=== PATIENT | female | born 1960 | race Caucasian/White ===

== ENCOUNTER 2016-04-10 13:19 | Outpatient (CLI) | payer MEDICARE ==
--- NOTE | 2016-04-11 10:57 | PAIN CLINIC PROGRESS NOTES ---
REFERRING PHYSICIANS: Dr. Elsa Ochoa Dear Elsa: REASON FOR VISIT: I had the opportunity of following up with Svetlana Benavidez. This is a 55-year-old white female who initially presented with back pain and she had an excellent response to a facet medial branch block followed by a lumbar radiofrequency neurolysis in September, but her symptoms began to reoccur. She had minimal to no response with a lumbar epidural injection for hip and leg pain. Last January, I repeated facet blocks higher at L1, L2, and L3 and then again at the sacroiliac joint all on the left side and she once again had near complete relief of her back and hip pain. Her MRI reveals a L4-L5 disk protrusion but nothing that results in severe or significant spinal or neuroforaminal stenosis. I re-examined Ms. Benavidez again today and she has no dermatomal numbness or weakness. She has a negative straight leg raise and a markedly positive assisted extension and extension rotation finding. She has a positive sacroiliac joint finding. Her nerve conduction velocity study by Dr. Larsen did not show any abnormalities or evidence of radiculopathy. 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 If that results in relief, I would recommend repeating a wide radiofrequency neurolysis. I have also talked to her about bone marrow aspirate concentrate injection for joint pain if that turns out to be the working diagnosis. She is very receptive, and I will see her back in the very near future. Thank you for allowing me to take part in the care of this nice lady. I am optimistic that we can get her some long-term relief. cc: Dr. Elsa PUCKETT
== END 2016-04-10 13:20 ==
LOC: OUT 13:19
PROVIDERS: ATTEND Anesthesiology Pain Medicine
DX: M54.9 Dorsalgia, unspecified (principal)
CPT/HCPCS: 99214; G0463

== ENCOUNTER 2017-04-26 09:47 | Outpatient (CLI) | payer MEDICARE ==
[2017-04-26 11:05] LABS: BASOPHILS % 0.7 (0.0-1.5); EOSINOPHILS % 1.9 % (0.0-6.8); MEAN CORPUSCULAR HEMOGLOBIN 28.5 pg (28.0-34.0); MEAN CORPUSCULAR VOLUME 85.8 fl (80.0-100.0); MONOCYTES % 4.4 % (0.0-11.0); NEUTROPHILS # 3.7 # k/uL (1.4-7.7)
[2017-04-26 12:15] LABS: eGFR (African) > 60; eGFR (Non-African) > 60
== END 2017-04-26 10:00 ==
LOC: LAB 09:47
PROVIDERS: ATTEND Neurological Surgery
DX: M47.27 Other spondylosis with radiculopathy, lumbosacral region (principal); N95.9 Unspecified menopausal and perimenopausal disorder; E66.9 Obesity, unspecified; E55.9 Vitamin D deficiency, unspecified; E78.5 Hyperlipidemia, unspecified; Z68.37 Body mass index [BMI] 37.0-37.9, adult
CPT/HCPCS: 36415; 80053; 82465; 83735; 84100; 84550; 85025; 85651; 86140

== ENCOUNTER 2017-07-13 09:32 | Outpatient (CLI) | payer MEDICARE ==
[2017-07-13 10:11] LABS: eGFR (African) > 60; eGFR (Non-African) > 60
== END 2017-07-13 09:33 ==
LOC: LAB 09:32
PROVIDERS: ATTEND Clinical Nurse Specialist Medical-Surgical
DX: M48.061 Spinal stenosis, lumbar region without neurogenic claudication (principal); N95.9 Unspecified menopausal and perimenopausal disorder; E66.9 Obesity, unspecified; Z68.37 Body mass index [BMI] 37.0-37.9, adult; E55.9 Vitamin D deficiency, unspecified; E78.5 Hyperlipidemia, unspecified
CPT/HCPCS: 36415; 80053; 82465; 83735; 84100; 84550

== ENCOUNTER 2017-08-24 09:27 | Outpatient (CLI) | payer MEDICARE ==
[2017-08-24 11:05] LABS: eGFR (African) > 60; eGFR (Non-African) > 60
== END 2017-08-24 09:32 ==
LOC: LAB 09:27
PROVIDERS: ATTEND Clinical Nurse Specialist Medical-Surgical
DX: M48.061 Spinal stenosis, lumbar region without neurogenic claudication (principal); N95.9 Unspecified menopausal and perimenopausal disorder; E66.9 Obesity, unspecified; Z68.37 Body mass index [BMI] 37.0-37.9, adult; E55.9 Vitamin D deficiency, unspecified; E78.5 Hyperlipidemia, unspecified
CPT/HCPCS: 36415; 80053; 82465; 83735; 84100; 84550

== ENCOUNTER 2017-09-11 15:30 | Emergency (ER) | payer MEDICARE ==
[2017-09-11 15:42] VITALS: BP 120/73
--- NOTE | 2017-09-11 15:43 | ED Physician Documentation ---
Upper Extremity Injury - HISTORIAN Historian: patient - HPI Chief Complaint: Upper Extremity Injury Additional Information: 56yo white female Onset: just prior to arrival Where: home Severity: mild Duration: persistent since Context: incision - ROS CONST: no problems - PAST HX Past History: Lt handed Immunizations: denies: tetanus Allergies/Adverse Reactions: Allergies Allergy/AdvReac Type Severity Reaction Status Date / Time No Known Allergies Allergy Verified 09/11/17 15:42 Home Medications: Ambulatory Orders Medication Instructions Recorded Duloxetine HCl [Cymbalta] 20 mg D 09/11/17 Lisinopril [Lisinopril] 20 mg D 09/11/17 Lisinopril [Lisinopril] 20 mg D 09/11/17 - SOCIAL HX Smoking History: non-smoker Alcohol Use: none Drug Use: none - FAMILY HX Family History: none - REVIEWED ASSESSMENTS Nursing Assessment Reviewed: Yes Vitals Reviewed: Yes Procedures Wound Location: other (left index finger over prox phalalnx) Wound's Depth, Shape: linear Wound Explored: clean Irrigated w/ Saline (ccs): 5 Betadine Prep?: No (jenelle-hex) Anesthesia: 1% Lidocaine Volume of Anesthetic: 1 Wound Debrided: none Wound Repaired With: sutures Suture Size/Type: 5:0 Number of Sutures: 3 Layer Closure?: No Sterile Dressing Applied?: Yes Splint Applied?: No ED Results Lab/Radiology - Orders Orders: ED Orders Category Date Time Status Diph,Pertuss(Acell),Tet Vac/Pf [Adacel] Med 09/11/17 16:00 Ordered 0.5 ml IM 1T Upper Extremity Injury Physic - Physical Exam General Appearance: no acute distress, alert Hand: laceration (left) Wrist: normal inspection, non-tender, no evidence of injury, normal ROM Neuro/Vascular/Tendon: no vascular compromise, motor nml, sensation nml Skin: warm,dry Resp/CVS: chest non-tender, breath sounds nml, heart sounds nml, no resp. distress, lungs clear, reg. rate & rhythm Discharge Clincal Impression: Finger laceration Qualifiers: Encounter type: initial encounter Finger: index finger Damage to nail status: without damage Foreign body presence: without foreign body Laterality: left Qualified Code(s): S61.211A - Laceration without foreign body of left index finger without damage to nail, initial encounter Referrals: Elsa Ochoa MD [Primary Care Provider] - 2 Days Additional Instructions: 1.Keep the wound clean and dry, you may run water over it but do not soak finger in water 2. Watch for any signs of infections- redness swelling, purulent drainage from wound. 3. Have sutures removed in 7-10 days 4. If any problems to return to the ED or see your primary care provider. Condition: Stable Disposition: 01 HOME, SELF-CARE Decision to Admit: NO Date of Decison to Admit: 09/11/17 Decision Time: 16:07
[2017-09-11] MEDS: Lidocaine 1% 5ml(IM or SUTURE)(PAIN CLINIC) IJ ONE (15:50)
[2017-09-11] MEDS: DIPH,PERTUSS(ACELL),TET VAC/PF 0.5 ML DISP.SYRIN IM SCH (15:59)
== END 2017-09-11 16:22 | disposition home or self-care (01) ==
LOC: ED 15:30
DX: S61.211A Laceration without foreign body of left index finger without damage to nail, initial encounter (principal); X58.XXXA Exposure to other specified factors, initial encounter; Y92.9 Unspecified place or not applicable; Y93.9 Activity, unspecified; Y99.9 Unspecified external cause status
CPT/HCPCS: 12001; 90471; 90715; 96372